=== PATIENT | male | born 1960 | race Caucasian/White ===

== ENCOUNTER 2020-11-22 11:30 | Observation (INO) | payer BC ==
[~2020-11-22] VITALS: Ht 177.8 cm; Wt 113.4 kg
[2020-11-22] MEDS ORDERED: ASPIRIN 81 MG CHEW TAB PO ONE (11:45)
[2020-11-22] MEDS ORDERED: LEVEMIR FL100 UNIT/1 SC (12:30)
[2020-11-22] MEDS ORDERED: PROPRANOLOL HCL10 MG PO (12:30)
[2020-11-22] MEDS ORDERED: LOW DOSE ASPIRI81 MG PO (12:30)
[2020-11-22] MEDS ORDERED: [UNRECOGNIZED DRUG - OTHER] PO (12:30)
[2020-11-22] MEDS ORDERED: NOVOLOG100 UNIT/1 SC (12:30)
[2020-11-22] MEDS ORDERED: VITAMIN D250 MCG PO (12:30)
[2020-11-22] MEDS ORDERED: AMLODIPINE BESYL5 MG PO (12:30)
[2020-11-22 12:41] LABS: BASOPHILS % 0.2 % (0.0-1.0); EOSINOPHILS # (AUTO) 0.2 (0.0-0.4); EOSINOPHILS % 2.3 % (0.0-6.0); HEMATOCRIT 41.3 % (38.2-49.6); HEMOGLOBIN 13.5 g/dL (14.0-18.0); LYMPHOCYTES # (AUTO) 1.6 (1.0-3.2); MEAN CORPUSCULAR HEMOGLOBIN 29.4 pg (28-32); MEAN CORPUSCULAR HGB CONC 32.7 g/dL (31-35); MONOCYTES # (AUTO) 0.6 (0.2-0.8); MONOCYTES % 7.7 % (4.4-11.3); NEUTROPHILS # (AUTO) 5.8 (2.1-6.9); NEUTROPHILS % 69.7 % (38.7-80.0); PLATELET COUNT 230 x10e3/uL (140-360); RED BLOOD COUNT 4.59 x10e6/uL (4.3-5.7); RED CELL DISTRIBUTION WIDTH 13.5 % (11.7-14.4)
[2020-11-22 13:00] LABS: ALBUMIN/GLOBULIN RATIO 1.1 (0.8-2.0); ANION GAP 13.3 mmol/L (8-16); CALCIUM 9.2 mg/dL (8.4-10.2); CREATININE, SERUM 1.49 mg/dL (0.72-1.25); POTASSIUM 4.3 mmol/L (3.5-5.1)
[2020-11-22] MEDS ORDERED: DEXTROSE 50% SYRINGE 50 ML IV STA (13:05)
[2020-11-22 13:09] LABS: CREATINE KINASE MB 1.9 ng/mL (0-5.0)
[2020-11-22 16:57] LABS: INR 0.88; PROTHROMBIN TIME 12.5 seconds (11.9-14.5)
[2020-11-22 16:58] LABS: PARTIAL THROMBOPLASTIN TIME 27.5 seconds (23.8-35.5)
[2020-11-22 21:07] LABS: CREATINE KINASE MB 1.3 ng/mL (0-5.0)
[2020-11-22 23:30] VITALS: BP 129/84
[2020-11-22 23:52] VITALS: BP 139/74
[2020-11-23] MEDS ORDERED: SODIUM CHLORIDE 0.9% 100 ML ONE (01:28)
[2020-11-23] MEDS ORDERED: IOPAMIDOL 370 MG/ML 200 ML INFUS..BTL INJ ONE (01:29)
[2020-11-23] MEDS ORDERED: BUTALB-ACETAMI1 EAC2 PO (02:21)
[2020-11-23] MEDS ORDERED: SYNTHROID100 MCG PO (02:21)
[2020-11-23] MEDS ORDERED: AUGMENTIN 500-1 EACH PO (02:21)
[2020-11-23] MEDS ORDERED: NITROSTAT0.4 MG SL (02:21)
[2020-11-23] MEDS ORDERED: EDARBYCLOR 40-1 EAC1 PO (02:21)
[2020-11-23] MEDS ORDERED: PANTOPRAZOLE SO40 MG PO (02:21)
[2020-11-23] MEDS ORDERED: PANTOPRAZOLE SOD 40 MG TABEC PO PRN (04:15)
[2020-11-23 05:08] LABS: BASOPHILS % 0.4 % (0.0-1.0); EOSINOPHILS # (AUTO) 0.2 (0.0-0.4); EOSINOPHILS % 2.3 % (0.0-6.0); HEMATOCRIT 38.7 % (38.2-49.6); LYMPHOCYTES # (AUTO) 1.4 (1.0-3.2); LYMPHOCYTES % 17.5 % (18.0-39.1); MEAN CORPUSCULAR HEMOGLOBIN 29.7 pg (28-32); MEAN CORPUSCULAR HGB CONC 33.6 g/dL (31-35); MEAN CORPUSCULAR VOLUME 88.6 fL (81-99); MONOCYTES # (AUTO) 0.7 (0.2-0.8); MONOCYTES % 8.1 % (4.4-11.3); NEUTROPHILS # (AUTO) 5.7 (2.1-6.9); NEUTROPHILS % 71.1 % (38.7-80.0); PLATELET COUNT 198 x10e3/uL (140-360); RED BLOOD COUNT 4.37 x10e6/uL (4.3-5.7); RED CELL DISTRIBUTION WIDTH 13.2 % (11.7-14.4)
[2020-11-23 05:27] LABS: ANION GAP 12.7 mmol/L (8-16); CALCIUM 9.1 mg/dL (8.4-10.2); CREATININE, SERUM 1.4 mg/dL (0.72-1.25); POTASSIUM 4.7 mmol/L (3.5-5.1)
[2020-11-23 05:30] VITALS: BP 119/68
[2020-11-23] MEDS ORDERED: LEVOTHYROXINE SODIUM 100 MCG TAB PO SCH (06:00)
[2020-11-23 06:01] LABS: CREATINE KINASE MB 1.1 ng/mL (0-5.0)
[2020-11-23] MEDS ORDERED: LEVOTHYROXINE SODIUM 25 MCG TABLET PO SCH (07:30)
[2020-11-23] MEDS ORDERED: GUAIFENESIN/DEXTROMETHORPHAN LIQD 5 ML UDC NG PRN (07:45)
[2020-11-23] MEDS: ASPIRIN 81 MG ENTERIC COATED PO SCH (08:16)
[2020-11-23 08:19] VITALS: BP 113/73
[2020-11-23] MEDS: PROPRANOLOL HCL 10 MG TAB PO SCH (09:20)
[2020-11-23 11:44] VITALS: BP 112/67
[2020-11-23 16:15] VITALS: BP 131/75
[2020-11-23 20:00] VITALS: BP_SYST 114; BP_SYST 115; BP_DIAS 48; BP_DIAS 72
[2020-11-23] MEDS ORDERED: PROPRANOLOL HCL 10 MG TAB PO SCH (21:00)
[2020-11-23] MEDS ORDERED: AMLODIPINE BESYLATE 5 MG TAB PO SCH (21:00)
[2020-11-23 21:10] VITALS: BP 115/72
[2020-11-23] MEDS ORDERED: DEXTROSE 50% SYRINGE 50 ML IV PRN (21:45)
[2020-11-23] MEDS ORDERED: INSULIN GLARGINE 100 UNITS/ML VIAL SQ SCH (21:50)
[2020-11-23] MEDS: INSULIN LISPRO 100 UNIT/1 ML 3ML VIAL SQ SCH (22:10)
[2020-11-24] VITALS: BP 114/48
[2020-11-24 04:00] VITALS: BP 112/60
[2020-11-24] MEDS ORDERED: LEVOTHYROXINE SODIUM 100 MCG TAB PO SCH (06:00)
[2020-11-24] MEDS ORDERED: LEVOTHYROXINE SODIUM 75 MCG TAB PO SCH (06:00)
[2020-11-24] MEDS: INSULIN LISPRO 100 UNIT/1 ML 3ML VIAL SQ SCH (07:30)
[2020-11-24 07:57] VITALS: BP 131/77
[2020-11-24] MEDS: ASPIRIN 81 MG ENTERIC COATED PO SCH (08:07)
[2020-11-24] MEDS: PROPRANOLOL HCL 10 MG TAB PO SCH (08:08)
== END 2020-11-24 08:30 | disposition home or self-care (01) ==
LOC: ER 11:40 → ERHOLD 20:34 → MED/SURG 22:29 → MED/SURG2 11-23 13:37
PROVIDERS: ADMIT Internal Medicine; ATTEND Internal Medicine
DX: R07.89 Other chest pain (principal); E66.9 Obesity, unspecified; E11.22 Type 2 diabetes mellitus with diabetic chronic kidney disease; I12.9 Hypertensive chronic kidney disease with stage 1 through stage 4 chronic kidney disease, or unspecified chronic kidney disease; N18.30 Chronic kidney disease, stage 3 unspecified; Z82.49 Family history of ischemic heart disease and other diseases of the circulatory system; D64.9 Anemia, unspecified; E03.9 Hypothyroidism, unspecified; Z68.35 Body mass index [BMI] 35.0-35.9, adult; Z88.8 Allergy status to other drugs, medicaments and biological substances; E78.5 Hyperlipidemia, unspecified; I25.10 Atherosclerotic heart disease of native coronary artery without angina pectoris; I77.810 Thoracic aortic ectasia
CPT/HCPCS: 36415 ×3; 71275; 78227; 80048; 80053; 82550 ×2; 82553 ×2; 82948 ×3; 83880; 84484 ×2; 85025 ×2; 85379; 85610; 85730; 93005; 99251; 99284; A9537; G0378 ×3; J1815; J7050; J7799; Q9967; U0002